=== PATIENT | female | born 1990 | race Caucasian/White ===

== ENCOUNTER 2017-08-15 18:20 | Inpatient (IN) | payer OTHER ==
[~2017-08-15] VITALS: Ht 160 cm; Wt 93.2 kg
[2017-08-15] VITALS (7 sets, daily range): BP systolic 98–122; BP diastolic 59–78
[2017-08-15] MEDS ORDERED: PRENATAL TABLE1 EAC3 PO (19:08)
[2017-08-15 19:50] LABS: BASOPHIL COUNT 0.1 K/uL (0-0.1); EOSINOPHIL (%) 0.5 % (0-5); EOSINOPHIL COUNT 0.1 K/uL (0-0.3); HEMATOCRIT 38.1 % (36.0-46.0); IMMATURE GRANULOCYTE (%) 1.1 % (0.0-0.7); IMMATURE GRANULOCYTE COUNT 0.1 K/uL; INSTRUMENT ABS NEUTROPHIL CT 8.2 K/uL; LYMPHOCYTE COUNT 2.8 K/uL (1.0-2.8); MCH 30.2 PG (29.0-34.0); MCHC 33.3 G/DL (30.0-36.0); MCV 90.7 FL (83-99); MEAN PLAT.VOLUME 9.1 uM^3 (9.5-12.4); MONOCYTE (%) 8.2 % (3-12); NEUTROPHIL (%) 66.8 % (45-76); NEUTROPHIL COUNT 8.2 K/uL (1.8-6.4); PLATELET COUNT 341 K/uL (156-360); RBC DIS.WIDTH-CV 13.3 % (11.8-14.6); RBC DIS.WIDTH-SD 43.9 % (39-53); WHITE BLOOD COUNT 12.3 K/uL (4.1-10.2)
[2017-08-16] VITALS (24 sets, daily range): BP systolic 92–137; BP diastolic 56–84
[2017-08-17] VITALS (34 sets, daily range): BP systolic 85–158; BP diastolic 50–89
[2017-08-18 01:04] VITALS: BP 112/77
[2017-08-18 08:30] VITALS: BP 101/72
[2017-08-18 14:30] VITALS: BP 107/75
[2017-08-18 22:30] VITALS: BP 106/65
[2017-08-19] MEDS ORDERED: IBUPROFEN800 MG PO (09:14)
[2017-08-19 09:32] VITALS: BP 117/75
== END 2017-08-19 12:00 | disposition home or self-care (01) | DRG 775 ==
LOC: LDRP-OP 18:20 → 2WEST 18:23 → LDRP-OP 23:00 → 2WEST 08-17 22:31 → LDRP-OP 10-05 09:41
PROVIDERS: Nurse Practitioner
PROC: 3E0P7GC Introduction of Other Therapeutic Substance into Female Reproductive, Via Natural or Artificial Opening (ICD-10-PCS; 2017-08-15)
PROC: 10E0XZZ Delivery of Products of Conception, External Approach (ICD-10-PCS; principal; 2017-08-17)
PROC: 10907ZC Drainage of Amniotic Fluid, Therapeutic from Products of Conception, Via Natural or Artificial Opening (ICD-10-PCS; 2017-08-17)
PROC: 3E0S3BZ Introduction of Anesthetic Agent into Epidural Space, Percutaneous Approach (ICD-10-PCS; 2017-08-17)
DX: O36.5931 Maternal care for other known or suspected poor fetal growth, third trimester, fetus 1 (principal); Z3A.37 37 weeks gestation of pregnancy; Z37.0 Single live birth; O69.2XX1 Labor and delivery complicated by other cord entanglement, with compression, fetus 1; E66.9 Obesity, unspecified; Z68.36 Body mass index [BMI] 36.0-36.9, adult; O99.214 Obesity complicating childbirth; Z87.442 Personal history of urinary calculi; O35.8XX1 Maternal care for other (suspected) fetal abnormality and damage, fetus 1
CPT/HCPCS: 85025; C1755; G0378; J0595; J2405; J3010; J7120